=== PATIENT | female | born 1995 | race Caucasian/White ===

== ENCOUNTER 2018-08-16 23:33 | Emergency (ER) | payer SELFPAY ==
[~2018-08-16] VITALS: Wt 43.7 kg
[2018-08-17] MEDS ORDERED: IBUPROFEN 200 MG TAB PO ONE (01:30)
[2018-08-17] MEDS ORDERED: CYCL10TA7 PO (02:45)
[2018-08-17] MEDS ORDERED: IBUP-1561 PO (02:45)
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
[2018-08-17 02:54] VITALS: BP 102/61; PULSE 62; RESP 17
== END 2018-08-17 03:07 | disposition home or self-care (01) ==
LOC: FTE 23:33
DX: S13.4XXA Sprain of ligaments of cervical spine, initial encounter (principal); V49.40XA Driver injured in collision with unspecified motor vehicles in traffic accident, initial encounter
CPT/HCPCS: 72040